=== PATIENT | female | born 1935 | race Caucasian/White ===

== ENCOUNTER 2016-09-15 07:35 | Day surgery (SDC) | payer MEDICARE, BC ==
[~2016-09-15 07:35] MED LIST: Lidocaine 1% with EPINEPHrine 1:100,000 50 ML MDV ONE; Sodium Chloride 0.9% 10 ML ONE; Sodium Tetradecyl Sulfate 1% 20 MG/2 ML SDV ONE
[2016-09-15] MEDS ORDERED: Sodium Chloride 0.9% 1,000 ML IV SCH (08:15)
[2016-09-15] MEDS ORDERED: Propofol 200 MG/20 ML SDV ONE ×2 (08:44→09:11)
[2016-09-15] MEDS ORDERED: fentaNYL 100 MCG/2 ML SDV ONE (08:45)
[2016-09-15] MEDS: Lidocaine 1% w/EPINEPHrine 50 ML, Sodium Bicarbonate 5 MEQ in Sodium Chloride 0.9% 950 ML INJECT SCH ×2 (08:55→09:44)
[2016-09-15 11:25] VITALS: BP 133/74
--- NOTE | 2016-09-15 12:06 | US ---
Images obtained for a RFA procedure. This is in the bilateral lower extremities. See procedural note s.
--- NOTE | 2016-09-16 08:23 | OR ---
DATE OF PROCEDURE: 09/15/2016 PROCEDURES: 1. Radiofrequency ablation of left greater saphenous vein. 2. Radiofrequency ablation of right greater saphenous vein. 3. Sclerotherapy left leg, multiple. 4. Sclerotherapy, right leg, multiple. COMPLICATIONS: None. VOCATIONAL REHAB CONSULTANT: None. ANESTHESIA: MAC/local. PREOPERATIVE DIAGNOSIS: Venous/varicose vein insufficiency and pain. POSTOPERATIVE DIAGNOSIS: Venous/varicose vein insufficiency and pain. Risk: Risks, benefits, alternatives, limitations including, but not limited to infection, bleeding, and DVT formation along with ulcer formation were explained to the patient, they wished to proceed. PROCEDURE IN DETAIL: The patient was placed in supine position. The left GSV was accessed at the level of the ankle in a standard fashion. This was performed using a 21-gauge needle, then exchanged for a 35,000 wire and then subsequently exchanged for a 7-Hungarian sheath. Lidocaine was used to anesthetize the skin. A single jason was created in the skin. The RFA probe was advanced to the level of the thigh and due to tortuosities in the vein, this was unable to be advanced any further. Tumescent fluid was injected in 1 cm jacket around. This would be verified a second and third time. Direct even pressure was performed as the RFA probe was deployed x2 proximally and distally and x1 in all other segments. The sheath and device were then removed and direct pressure was held for 10 minutes and Dermabond was applied. The right leg was then addressed in same manner, same fashion, same technique in the same sequence using the same equipment except this was at 3 cm from the junction. Sclerotherapy was then performed in the left and right legs using 0.33% sodium tetradecyl. This was always drawn back to ensure intravascular injection only. No more than 2 mL was injected in one location. Compression wraps were also applied, and the patient tolerated the procedure well. Kiko Tello MD /[id number]
== END 2016-09-15 11:25 | disposition home or self-care (01) ==
LOC: JP.SDS 07:35
PROVIDERS: ATTEND Surgery
DX: I87.2 Venous insufficiency (chronic) (peripheral) (principal); I83.813 Varicose veins of bilateral lower extremities with pain; Z88.0 Allergy status to penicillin; Z88.8 Allergy status to other drugs, medicaments and biological substances; I10 Essential (primary) hypertension; E78.00 Pure hypercholesterolemia, unspecified; E66.9 Obesity, unspecified
CPT/HCPCS: 36471; 36475; J1642; J2704; J3010; J7040; J7050; J3490

== ENCOUNTER 2018-05-10 16:44 | Emergency (ER) | payer BC, MEDICARE ==
[2018-05-10 17:06] VITALS: BP 214/94
--- NOTE | 2018-05-10 17:46 | EDM.PDOC ---
ED HPI GENERAL MEDICAL PROBLEM - General Chief Complaint: General Stated Complaint: FALL, HIT HEAD AND SHOULDER Time Seen by Provider: 05/10/18 17:31 Source of Information: Reports: Patient, RN Notes Reviewed History Limitations: Reports: No Limitations - History of Present Illness INITIAL COMMENTS - FREE TEXT/NARRATIVE: 82-year-old female presents emergency department today following a fall on the ice she slipped and landed predominantly on her left shoulder and ended up hitting the left frontal region of her head. No loss of consciousness no nausea vomiting no headache she complains of left shoulder pain and difficulty to lift that shoulder Left Shoulder Pain Score (Numeric/FACES): 10 - Related Data Allergies Allergy/AdvReac Type Severity Reaction Status Date / Time lisinopril Allergy Cannot Verified 05/10/18 17:07 Remember Penicillins Allergy Cannot Verified 05/10/18 17:07 Remember pravastatin Allergy Cannot Verified 05/10/18 17:07 Remember pregabalin [From Lyrica] Allergy Cannot Verified 05/10/18 17:07 Remember quinidine Allergy Cannot Verified 05/10/18 17:07 Remember Home Meds: Home Meds Aspirin [Adult Low Dose Aspirin EC] 81 mg PO DAILY 09/13/16 [History] Cyanocobalamin (Vitamin B-12) [B-12] 1,000 mcg PO DAILY 09/13/16 [History] Torsemide 20 mg PO DAILY 09/13/16 [History] Gabapentin [Neurontin] 300 mg PO DAILY PRN 05/10/18 [History] Spironolactone [Aldactone] 25 mg PO DAILY 05/10/18 [History] Past Medical History HEENT History: Reports: Impaired Vision Cardiovascular History: Reports: High Cholesterol, Hypertension 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: Musculoskeletal History: Reports: Arthritis, Fracture Endocrine/Metabolic History: Reports: Obesity/BMI 30+ - Infectious Disease History Infectious Disease History: Reports: Measles - Past Surgical History Head Surgeries/Procedures: Reports: None HEENT Surgical History: Reports: Cataract Surgery Cardiovascular Surgical History: Reports: None GI Surgical History: Reports: Colonoscopy Endocrine Surgical History: Reports: None Musculoskeletal Surgical History: Reports: Other (See Below) Other Musculoskeletal Surgeries/Procedures:: left ankle placement and removal plate Dermatological Surgical History: Reports: None Social & Family History - Family History Family Medical History: Noncontributory - Tobacco Use Smoking Status *Q: Never Smoker Second Hand Smoke Exposure: No - Caffeine Use Caffeine Use: Reports: Coffee, Soda - Recreational Drug Use Recreational Drug Use: No ED ROS GENERAL - Review of Systems Review Of Systems: See Below Constitutional: Reports: No Symptoms GI/Abdominal: Reports: No Symptoms Musculoskeletal: Reports: Shoulder Pain Skin: Reports: Bruising Neurological: Denies: Headache ED EXAM, GENERAL - Physical Exam Exam: See Below Free Text/Narrative:: Examination of the left shoulder she is tender to palpation of the clavicle as well as the acromioclavicular joint. She has difficulty with abduction to about 50 secondary to pain, radial pulse is +2 Exam Limited By: No Limitations General Appearance: Alert, WD/WN, No Apparent Distress Eye Exam: Bilateral Eye: EOMI, PERRL Ears: Normal External Exam, Normal Canal, Hearing Grossly Normal, Normal TMs Throat/Mouth: No Airway Compromise Head: Normocephalic, Facial Swelling, Facial Tenderness Neck: Normal Inspection, Supple, Non-Tender, Full Range of Motion Respiratory/Chest: No Respiratory Distress Course - Vital Signs Last Recorded V/S: Last Vital Signs Temp 97.2 F 05/10/18 17:05 Pulse 57 L 05/10/18 17:05 Resp 16 05/10/18 17:05 BP 214/94 H 05/10/18 17:05 Pulse Ox 98 05/10/18 17:05 - Orders/Labs/Meds Orders: Active Orders 24 hr Category Date Time Status Shoulder Comp Lt [CR] Stat Exams 05/10/18 17:41 Taken DME for Discharge [COMM] Stat Oth 05/10/18 18:15 Ordered Departure - Departure Time of Disposition: 18:17 Disposition: Home, Self-Care 01 Condition: Fair Clinical Impression: Left shoulder strain Qualifiers: Encounter type: initial encounter Qualified Code(s): S46.912A - Strain of unspecified muscle, fascia and tendon at shoulder and upper arm level, left arm , initial encounter - Discharge Information Referrals: PCP,None [Primary Care Provider] - Forms: ED Department Discharge Additional Instructions: Continue to use the sling for comfort, use Tylenol or Motrin as needed for pain control, the orthopedics clinic will call you for an appointment time on Monday - My Orders Last 24 Hours: My Active Orders 05/10/18 18:15 DME for Discharge [COMM] Stat - Assessment/Plan Last 24 Hours: My Active Orders 05/10/18 18:15 DME for Discharge [COMM] Stat Plan: Assessment Acuity = acute Site and laterality = left shoulder sprain Etiology = secondary to a fall Manifestations = difficulty with abduction Location of injury = Home Lab values = shoulder x-ray I did review films myself I cannot appreciate any acute process, the official read from radiology is pending Plan She is placed in a sling for comfort will use Motrin for pain control, she declined any further image studies of her head including a CAT scan at this time. Consultation with orthopedics was set up for Monday This note was dictated using [employer] voice recognition software please call with any questions on syntax or grammar.
== END 2018-05-10 18:41 | disposition home or self-care (01) ==
LOC: JP.ED 16:44
DX: S46.912A Strain of unspecified muscle, fascia and tendon at shoulder and upper arm level, left arm, initial encounter (principal); E78.00 Pure hypercholesterolemia, unspecified; I10 Essential (primary) hypertension; W00.0XXA Fall on same level due to ice and snow, initial encounter; Z88.0 Allergy status to penicillin; Z88.8 Allergy status to other drugs, medicaments and biological substances; Z79.899 Other long term (current) drug therapy; Z79.82 Long term (current) use of aspirin
CPT/HCPCS: 73030-LT; 99284

== ENCOUNTER 2023-02-10 10:29 | Emergency (ER) | payer MEDICARE ==
[2023-02-10 10:36] VITALS: BP 177/77; PULSE 61
[2023-02-10] MEDS ORDERED: Meclizine 25 MG Tab PO ONE (11:20)
[2023-02-10 11:36] LABS: BASOPHILS ABSOLUTE AUTO 0.06 K/uL (0.00-0.10); BASOPHILS PERCENT AUTO 0.9 % (0.1-1.3); EOSINOPHILS ABSOLUTE AUTO 0.04 K/uL (0.00-0.40); EOSINOPHILS PERCENT AUTO 0.6 % (0.0-5.4); HEMOGLOBIN 13.3 g/dL (11.2-15.5); IMMATURE GRAN ABSOLUTE AUTO 0.03 K/uL (0.00-0.23); IMMATURE GRAN PERCENT AUTO 0.4 % (0.0-0.7); LYMPHOCYTES ABSOLUTE AUTO 1.75 K/uL (0.8-3.3); LYMPHOCYTES PERCENT AUTO 25.2 % (11.4-47.7); MEAN CORPUSCULAR HEMOGLOBIN 29.2 pg (31.6-35.5); MEAN CORPUSCULAR HGB CONC 33.3 g/dL (31.6-35.5); MEAN CORPUSCULAR VOLUME 87.7 fL (81.4-99.0); MONOCYTES ABSOLUTE AUTO 0.34 K/uL (0.20-0.90); MONOCYTES PERCENT AUTO 4.9 % (3.3-12.6); NEUTROPHILS ABSOLUTE AUTO 4.72 K/uL (1.0-7.6); PLATELET COUNT,PLT 166 K/uL (130-375); RED BLOOD CELL COUNT 4.56 M/uL (3.77-5.24); WHITE BLOOD CELL COUNT,WBC 6.9 K/uL (3.2-11.0)
[2023-02-10 12:08] LABS: CALCIUM 9.5 mg/dL (8.5-10.1); EST CRCL DRUG DOSING (CG) 37.1 mL/min; POTASSIUM,K 3.8 mmol/L (3.6-5.2)
[2023-02-10 12:10] LABS: ANION GAP 10.8 mmol/L (5.0-14.0)
[2023-02-10 12:11] LABS: MAGNESIUM 2.1 mg/dL (1.8-2.4); TSH ULTRASENSITIVE 1.792 uIU/mL (0.358-3.740)
== END 2023-02-10 13:05 | disposition home or self-care (01) ==
LOC: JP.ED 10:29
DX: H81.11 Benign paroxysmal vertigo, right ear (principal); M19.90 Unspecified osteoarthritis, unspecified site; I10 Essential (primary) hypertension; E66.9 Obesity, unspecified; Z79.82 Long term (current) use of aspirin; Z79.899 Other long term (current) drug therapy; Z88.0 Allergy status to penicillin; Z88.8 Allergy status to other drugs, medicaments and biological substances; Z68.32 Body mass index [BMI] 32.0-32.9, adult
CPT/HCPCS: 36415; 80048; 83735; 84443; 85025; 93005; 99284; A9270-GY

== ENCOUNTER 2024-04-11 15:49 | Observation (INO) | payer MEDICARE ==
[2024-04-11 16:26] LABS: BASOPHILS ABSOLUTE AUTO 0.04 K/uL (0.00-0.10); BASOPHILS PERCENT AUTO 0.4 % (0.1-1.3); EOSINOPHILS PERCENT AUTO 0.1 % (0.0-5.4); HEMATOCRIT 40.2 % (34.3-46.0); HEMOGLOBIN 13.7 g/dL (11.2-15.5); IMMATURE GRAN ABSOLUTE AUTO 0.04 K/uL (0.00-0.23); IMMATURE GRAN PERCENT AUTO 0.4 % (0.0-0.7); LYMPHOCYTES ABSOLUTE AUTO 0.99 K/uL (0.8-3.3); LYMPHOCYTES PERCENT AUTO 8.8 % (11.4-47.7); MEAN CORPUSCULAR HEMOGLOBIN 29.3 pg (31.6-35.5); MEAN CORPUSCULAR HGB CONC 34.1 g/dL (31.6-35.5); MEAN CORPUSCULAR VOLUME 86.1 fL (81.4-99.0); MONOCYTES ABSOLUTE AUTO 0.71 K/uL (0.20-0.90); MONOCYTES PERCENT AUTO 6.3 % (3.3-12.6); NEUTROPHILS ABSOLUTE AUTO 9.43 K/uL (1.0-7.6); PLATELET COUNT,PLT 168 K/uL (130-375); RED BLOOD CELL COUNT 4.67 M/uL (3.77-5.24); WHITE BLOOD CELL COUNT,WBC 11.2 K/uL (3.2-11.0)
[2024-04-11 16:27] LABS: EOSINOPHILS ABSOLUTE AUTO 0.01 K/uL (0.00-0.40)
[2024-04-11 16:49] LABS: A/G RATIO 1.1 (1.2-2.2); ALANINE AMINOTRANSFERASE,ALT 16 U/L (12-78); ALKALINE PHOSPHATASE 98 U/L (46-116); ANION GAP 9.8 mmol/L (5.0-14.0); ASPARTATE AMNIOTRANSFERASE,AST 16 U/L (15-37); BILIRUBIN TOTAL 0.9 mg/dL (0.2-1.0); BLOOD UREA NITROGEN,BUN 23 mg/dL (7-18); CALCIUM 9.1 mg/dL (8.5-10.1); CARBON DIOXIDE,CO2 27 mmol/L (21-32); CHLORIDE,CL 106 mmol/L (100-108); CREATINE KINASE,CK 180 U/L (26-192); ESTIMATED GFR 54 mL/min (>60); GLUCOSE RANDOM 141 mg/dL (74-106); POTASSIUM,K 3.8 mmol/L (3.6-5.2); PROTEIN TOTAL,TP 7.5 g/dL (6.4-8.2); SODIUM,NA 143 mmol/L (140-148)
[2024-04-11] MEDS: fentaNYL 100 MCG/2 ML SDV IVPUSH ONE (16:51)
[2024-04-11] MEDS: Sodium Chloride 0.9% 1,000 ML IV SCH ×2 (16:55→20:49)
[2024-04-11 19:13] LABS: BILIRUBIN,URINE NEGATIVE (NEGATIVE); COLOR,URINE YELLOW (YELLOW); GLUCOSE,URINE NEGATIVE (NEGATIVE); KETONES,URINE NEGATIVE (NEGATIVE); LEUKOCYTE ESTERASE,URINE NEGATIVE (NEGATIVE); NITRITE,URINE NEGATIVE (NEGATIVE); OCCULT BLOOD,URINE NEGATIVE (NEGATIVE); PH,URINE 5.5 (5.0-8.0); PROTEIN,URINE 30 mg/dL (NEGATIVE); UROBILINOGEN,URINE 0.2 EU/dL (0.2-1.0)
[2024-04-11 19:18] LABS: AMORPHOUS SEDIMENT,URINE NOT SEEN; APPEARANCE,URINE SLIGHTLY CLOUDY (CLEAR); BACTERIA,URINE FEW; EPITHELIAL CELLS,URINE FEW; MUCUS,URINE NOT SEEN; RBC,URINE 0-5 (0-5); WBC,URINE 0-5 (0-5)
[2024-04-11] MEDS ORDERED: Naloxone 0.4 MG/ML SDV IVPUSH PRN ×2 (19:37→20:17)
[2024-04-11] MEDS: fentaNYL 50 MCG/ML SDV IVPUSH ONE (20:12)
[2024-04-11] MEDS ORDERED: fentaNYL 50 MCG/ML SDV IVPUSH PRN (20:17)
[2024-04-11] MEDS ORDERED: Ondansetron 4 MG Tab.DIS PO PRN (20:17)
[2024-04-11] MEDS: Diclofenac Sodium 1% Gel 100 GM Tube TOP PRN (21:19)
[2024-04-11] MEDS: Clotrimazole 1% Crm 30 GM Tube TOP SCH (21:23)
[2024-04-11] MEDS: Gabapentin 300 MG Cap PO PRN (21:25)
[2024-04-11] MEDS: SPIRONOLACTONE 25 MG PO SCH (21:25)
[2024-04-11] MEDS: MIRABEGRON 50 MG PO SCH (22:03)
[2024-04-11] MEDS: Mirabegron 25 MG Tab Extended Release PO SCH (22:41)
[2024-04-12 05:42] LABS: BASOPHILS ABSOLUTE AUTO 0.04 K/uL (0.00-0.10); BASOPHILS PERCENT AUTO 0.7 % (0.1-1.3); EOSINOPHILS ABSOLUTE AUTO 0.05 K/uL (0.00-0.40); EOSINOPHILS PERCENT AUTO 0.9 % (0.0-5.4); HEMATOCRIT 32.9 % (34.3-46.0); IMMATURE GRAN PERCENT AUTO 0.3 % (0.0-0.7); LYMPHOCYTES ABSOLUTE AUTO 1.58 K/uL (0.8-3.3); LYMPHOCYTES PERCENT AUTO 27.1 % (11.4-47.7); MEAN CORPUSCULAR HEMOGLOBIN 28.9 pg (31.6-35.5); MEAN CORPUSCULAR HGB CONC 33.4 g/dL (31.6-35.5); MEAN CORPUSCULAR VOLUME 86.6 fL (81.4-99.0); MONOCYTES PERCENT AUTO 10.3 % (3.3-12.6); NEUTROPHILS ABSOLUTE AUTO 3.54 K/uL (1.0-7.6); NEUTROPHILS PERCENT AUTO 60.7 % (40.0-78.1); PLATELET COUNT,PLT 133 K/uL (130-375); WHITE BLOOD CELL COUNT,WBC 5.8 K/uL (3.2-11.0)
[2024-04-12 05:44] LABS: IMMATURE GRAN ABSOLUTE AUTO 0.02 K/uL (0.00-0.23)
[2024-04-12 06:00] LABS: CALCIUM 8.3 mg/dL (8.5-10.1); CREATININE 0.8 mg/dL (0.6-1.0); EST CRCL DRUG DOSING (CG) 49.03 mL/min; POTASSIUM,K 3.6 mmol/L (3.6-5.2)
[2024-04-12 06:01] LABS: ANION GAP 12.6 mmol/L (5.0-14.0)
[2024-04-12] MEDS: Potassium Chloride 20 MEQ Tab.ER PO ONE (08:33)
[2024-04-12] MEDS: VIBEGRON 75 MG PO SCH (10:21)
[2024-04-12] MEDS: Nystatin Topical Powder 15 GM Bottle TOP SCH (16:10)
[2024-04-13] MEDS: Acetaminophen 325 MG Tab PO PRN (03:18)
[2024-04-13 05:34] LABS: BASOPHILS ABSOLUTE AUTO 0.04 K/uL (0.00-0.10); BASOPHILS PERCENT AUTO 0.5 % (0.1-1.3); EOSINOPHILS ABSOLUTE AUTO 0.12 K/uL (0.00-0.40); EOSINOPHILS PERCENT AUTO 1.5 % (0.0-5.4); HEMATOCRIT 32.3 % (34.3-46.0); HEMOGLOBIN 10.7 g/dL (11.2-15.5); IMMATURE GRAN ABSOLUTE AUTO 0.03 K/uL (0.00-0.23); IMMATURE GRAN PERCENT AUTO 0.4 % (0.0-0.7); LYMPHOCYTES ABSOLUTE AUTO 1.76 K/uL (0.8-3.3); MEAN CORPUSCULAR HEMOGLOBIN 29.2 pg (31.6-35.5); MEAN CORPUSCULAR HGB CONC 33.1 g/dL (31.6-35.5); MONOCYTES ABSOLUTE AUTO 0.81 K/uL (0.20-0.90); MONOCYTES PERCENT AUTO 10.1 % (3.3-12.6); NEUTROPHILS ABSOLUTE AUTO 5.24 K/uL (1.0-7.6); NEUTROPHILS PERCENT AUTO 65.5 % (40.0-78.1); PLATELET COUNT,PLT 144 K/uL (130-375); RED BLOOD CELL COUNT 3.67 M/uL (3.77-5.24)
[2024-04-13 05:51] LABS: CALCIUM 8.1 mg/dL (8.5-10.1); EST CRCL DRUG DOSING (CG) 39.23 mL/min; POTASSIUM,K 5.2 mmol/L (3.6-5.2)
[2024-04-13 05:54] LABS: ANION GAP 11.2 mmol/L (5.0-14.0)
[2024-04-13] MEDS: oxyCODONE 5 MG Tab PO PRN (07:10)
[2024-04-13 11:37] VITALS: BP 153/70; PULSE 61
== END 2024-04-13 11:50 | disposition home health service (06) ==
LOC: JP.ED 15:49 → JP.MS 19:38
PROVIDERS: ADMIT Nurse Practitioner; ATTEND Hospitalist
DX: S06.9X9A Unspecified intracranial injury with loss of consciousness of unspecified duration, initial encounter (principal); R53.1 Weakness; I87.2 Venous insufficiency (chronic) (peripheral); S40.012A Contusion of left shoulder, initial encounter; B35.4 Tinea corporis; I10 Essential (primary) hypertension; E78.00 Pure hypercholesterolemia, unspecified; Z79.899 Other long term (current) drug therapy; Z88.0 Allergy status to penicillin; Z88.8 Allergy status to other drugs, medicaments and biological substances; W01.0XXA Fall on same level from slipping, tripping and stumbling without subsequent striking against object, initial encounter
CPT/HCPCS: 36415; 70450; 70486; 72125; 73030; 73562; 76377; 80048; 80053; 81001; 82550; 83605; 85025; 96361; 96374; 96376; 97116; 97161; 97165; 97530; 99222; 99232; 99238; 99285; A9270; G0378; J3010; J7030

== ENCOUNTER 2024-10-12 11:12 | Inpatient (IN) | payer MEDICARE ==
[2024-10-12 11:34] LABS: BASOPHILS ABSOLUTE AUTO 0.03 K/uL (0.00-0.10); BASOPHILS PERCENT AUTO 0.3 % (0.1-1.3); HEMOGLOBIN 13.3 g/dL (11.2-15.5); IMMATURE GRAN ABSOLUTE AUTO 0.04 K/uL (0.00-0.23); IMMATURE GRAN PERCENT AUTO 0.4 % (0.0-0.7); LYMPHOCYTES ABSOLUTE AUTO 1.08 K/uL (0.8-3.3); LYMPHOCYTES PERCENT AUTO 11.7 % (11.4-47.7); MEAN CORPUSCULAR HEMOGLOBIN 29.8 pg (31.6-35.5); MEAN CORPUSCULAR HGB CONC 33.3 g/dL (31.6-35.5); MEAN CORPUSCULAR VOLUME 89.7 fL (81.4-99.0); MONOCYTES ABSOLUTE AUTO 0.77 K/uL (0.20-0.90); MONOCYTES PERCENT AUTO 8.4 % (3.3-12.6); NEUTROPHILS ABSOLUTE AUTO 7.28 K/uL (1.0-7.6); NEUTROPHILS PERCENT AUTO 79.2 % (40.0-78.1); PLATELET COUNT,PLT 172 K/uL (130-375); RED BLOOD CELL COUNT 4.46 M/uL (3.77-5.24); WHITE BLOOD CELL COUNT,WBC 9.2 K/uL (3.2-11.0)
[2024-10-12 11:43] LABS: INR 1.1; PROTHROMBIN TIME 11.5 sec (9.2-10.6)
[2024-10-12] MEDS: Sodium Chloride 0.9% 1,000 ML IV ONE (11:45)
[2024-10-12 11:48] LABS: A/G RATIO 1.1 (1.2-2.2); ALANINE AMINOTRANSFERASE,ALT 23 U/L (12-78); ALBUMIN 3.6 g/dL (3.4-5.0); ALKALINE PHOSPHATASE 87 U/L (46-116); ASPARTATE AMNIOTRANSFERASE,AST 31 U/L (15-37); BLOOD UREA NITROGEN,BUN 30 mg/dL (7-18); CALCIUM 9.6 mg/dL (8.5-10.1); CARBON DIOXIDE,CO2 26 mmol/L (21-32); CHLORIDE,CL 106 mmol/L (100-108); CREATININE 0.9 mg/dL (0.6-1.0); EST CRCL DRUG DOSING (CG) 30.44 mL/min; ESTIMATED GFR 61 mL/min (>60); GLUCOSE RANDOM 115 mg/dL (74-106); PROTEIN TOTAL,TP 6.9 g/dL (6.4-8.2); SODIUM,NA 143 mmol/L (140-148)
[2024-10-12 12:42] LABS: APPEARANCE,URINE CLEAR (CLEAR); BILIRUBIN,URINE NEGATIVE (NEGATIVE); COLOR,URINE YELLOW (YELLOW); GLUCOSE,URINE NEGATIVE (NEGATIVE); KETONES,URINE 40 mg/dL (NEGATIVE); LEUKOCYTE ESTERASE,URINE NEGATIVE (NEGATIVE); NITRITE,URINE POSITIVE (NEGATIVE); OCCULT BLOOD,URINE MODERATE (NEGATIVE); PH,URINE 5.5 (5.0-8.0); PROTEIN,URINE 30 mg/dL (NEGATIVE); UROBILINOGEN,URINE 0.2 EU/dL (0.2-1.0)
[2024-10-12] MEDS: Sodium Chloride 0.9% 250 ML IV SCH (13:10)
[2024-10-12 13:18] LABS: AMORPHOUS SEDIMENT,URINE NOT SEEN; BACTERIA,URINE MANY; EPITHELIAL CELLS,URINE NOT SEEN; MUCUS,URINE NOT SEEN; WBC,URINE NOT SEEN (0-5)
[2024-10-12] MEDS: Diphtheria,Pertussis(Acell),Tetanus Vaccine 0.5 ML Syringe IM ONE (14:43)
[2024-10-12] MEDS ORDERED: Polyethylene Glycol 3350 Powder 17 GM Packet PO PRN (16:55)
[2024-10-12] MEDS ORDERED: oxyCODONE 5 MG Tab PO PRN (16:55)
[2024-10-12] MEDS ORDERED: Ondansetron 4 MG/2 ML SDV IV PRN (16:55)
[2024-10-12] MEDS ORDERED: Sodium Chloride 0.9% 10 ML Syringe FLUSH PRN (16:55)
[2024-10-12] MEDS: Sodium Chloride 0.9% 1,000 ML IV SCH (18:21)
[2024-10-12] MEDS: Enoxaparin 40 MG/0.4 ML Syringe SUBCUT SCH (20:01)
[2024-10-12] MEDS: cefTRIAXone 1 GM in Sodium Chloride 0.9% 50 ML IV SCH (21:03)
[2024-10-12] MEDS: Nystatin Topical Powder 15 GM Bottle TOP SCH (21:03)
[2024-10-13 05:53] LABS: HEMATOCRIT 34.1 % (34.3-46.0); HEMOGLOBIN 11.1 g/dL (11.2-15.5); MEAN CORPUSCULAR HEMOGLOBIN 29.8 pg (31.6-35.5); MEAN CORPUSCULAR HGB CONC 32.6 g/dL (31.6-35.5); MEAN CORPUSCULAR VOLUME 91.7 fL (81.4-99.0); RED BLOOD CELL COUNT 3.72 M/uL (3.77-5.24); WHITE BLOOD CELL COUNT,WBC 8.6 K/uL (3.2-11.0)
[2024-10-13 06:15] LABS: CALCIUM 8.7 mg/dL (8.5-10.1); CREATININE 1.1 mg/dL (0.6-1.0); EST CRCL DRUG DOSING (CG) 31.2 mL/min; MAGNESIUM 1.9 mg/dL (1.8-2.4)
[2024-10-13] MEDS: Gabapentin 100 MG Cap PO SCH (08:10)
[2024-10-13] MEDS: Spironolactone 25 MG Tab PO SCH (08:10)
[2024-10-13] MEDS: Mirabegron 25 MG Tab Extended Release PO SCH (08:10)
[2024-10-13] MEDS: Magnesium Oxide 400 MG Tab PO SCH (08:11)
[2024-10-13] MEDS: Nystatin Topical Powder 15 GM Bottle TOP SCH (08:11)
[2024-10-13] MEDS: Furosemide 20 MG/2 ML VIAL IVPUSH ONE ×2 (12:56→16:03)
[2024-10-13] MEDS: Enoxaparin 40 MG/0.4 ML Syringe SUBCUT SCH (20:31)
[2024-10-13] MEDS: Melatonin 3 MG Tab PO PRN (21:39)
[2024-10-14] MEDS: Acetaminophen 325 MG Tab PO PRN (13:47)
[2024-10-14] MEDS: Gabapentin 100 MG Cap PO SCH (21:06)
[2024-10-15] MEDS: Cephalexin 250 MG Cap PO SCH (21:01)
[2024-10-16 10:53] VITALS: BP 128/48; PULSE 60
== END 2024-10-16 10:30 | disposition home health service (06) | DRG 565 ==
LOC: JP.ED 11:12 → JP.MS 15:10 → OBSVTOIN 10-13 11:30
PROVIDERS: ADMIT Hospitalist; ATTEND Internal Medicine
DX: S00.83XA Contusion of other part of head, initial encounter (principal); S49.92XA Unspecified injury of left shoulder and upper arm, initial encounter; S79.911A Unspecified injury of right hip, initial encounter; S09.90XA Unspecified injury of head, initial encounter; M54.2 Cervicalgia; T79.6XXA Traumatic ischemia of muscle, initial encounter; N30.00 Acute cystitis without hematuria; H54.7 Unspecified visual loss; E78.00 Pure hypercholesterolemia, unspecified; I10 Essential (primary) hypertension; M19.90 Unspecified osteoarthritis, unspecified site; W19.XXXA Unspecified fall, initial encounter; B96.20 Unspecified Escherichia coli [E. coli] as the cause of diseases classified elsewhere; E66.9 Obesity, unspecified; Z68.32 Body mass index [BMI] 32.0-32.9, adult; Z87.81 Personal history of (healed) traumatic fracture; Z98.49 Cataract extraction status, unspecified eye; Z79.899 Other long term (current) drug therapy; Z88.8 Allergy status to other drugs, medicaments and biological substances; Z79.891 Long term (current) use of opiate analgesic; Z98.890 Other specified postprocedural states; Z88.0 Allergy status to penicillin
CPT/HCPCS: 36415 ×2; 51702; 70450; 71045; 72125; 73030; 73502; 76377; 80048; 80053; 81001; 82550 ×2; 83605; 83735; 85025; 85027; 85610; 87086; 87088; 87186; 90471; 90715; 96361; 96365; 96372; 99222; 99283; 99285; A9270 ×6; G0378 ×3; J0696; J1650; J7030 ×2; J7050; 96360; 97116-GP; 97162-GP; 97165-GO; 97530-GP; 99231; 99232; 99238; J1938